=== PATIENT | male | born 1935 | race Caucasian/White ===

== ENCOUNTER → 2017-08-25 | Outpatient (CLI) | payer OTHER ==
[~2017-08-25] MED LIST: BENHYD1012 PO; CETI5 PO; Cipro500 MG PO; GAVILAX17 GM; HYDACE5 PO; IBUP400 PO; LEVSOD100 PO; Norco 5-325 Ta1 EACH PO; Pyridium200 MG PO; TAMS.4ER PO
== END | disposition home or self-care (01) ==
LOC: LAB 14:00
DX: R30.0 Dysuria (principal)
CPT/HCPCS: 87086

== ENCOUNTER → 2017-09-07 | Outpatient (CLI) | payer OTHER | END | disposition home or self-care (01) | LOC: LAB 11:30 | DX: R30.0 Dysuria (principal) | CPT/HCPCS: 87086 ==

== ENCOUNTER → 2017-09-21 | Outpatient (CLI) | payer OTHER ==
[2017-09-21 14:08] LABS: Source, Urine Clean Catch
[2017-09-21 16:24] LABS: Appearance, Urine Clear (Clear); Bilirubin, Urine Neg (Neg); Blood, Urine 3+ (Neg); Color, Urine Yellow (P-Yellow); Glucose Qualitative, Urine Neg (Neg); Ketones, Urine Neg (Neg); Leukocyte Esterase, Urine Neg (Neg); Nitrite, Urine Neg (Neg); Protein, Urine Neg (Neg); Specific Gravity, Urine 1.015 (1.003-1.022); Urobilinogen, Urine NORM (Normal)
[2017-09-21 16:40] LABS: Bacteria Few /hpf; Squamous Epithelial Cells Few /hpf (Few)
== END | disposition home or self-care (01) ==
LOC: LAB 14:03
PROVIDERS: Family Medicine
DX: R30.0 Dysuria (principal)
CPT/HCPCS: 81001; 87086

== ENCOUNTER 2018-10-30 09:50 | Day surgery (SDC) | payer OTHER ==
[~2018-10-30] VITALS: Ht 188 cm; Wt 87.7 kg
[~2018-10-30 09:50] MED LIST changes: +Benazepril HCl10 MG PO; +LO-DOSE ASPIRIN81 MG PO
[2018-10-30] MEDS ORDERED: ATOR40TA PO ×2 (10:45→10:52)
[2018-10-30] MEDS ORDERED: METO25ER PO ×2 (10:45→10:52)
[2018-10-30] MEDS ORDERED: LEVSOD100 PO (10:51)
[2018-10-30] MEDS ORDERED: Benazepril HCl10 MG PO (10:52)
[2018-10-30] MEDS ORDERED: ASPI81CH PO (10:52)
--- NOTE | 2018-10-30 12:35 | NUR ---
PT TO RECOVERY - AWAKE, ALERT, CONVERSING WITH STAFF. STATES "MY OPTIC NERVE IS STARTING TO ACT UP" STATES WHEN THIS HAPPENS, HE HAS A HARD TIME SEEING BUT IS ABLE TO CONTROL IT WITH RELAXATION TECHNIQUES. CURRENTLY RESTING COMFORTABLY ON STRETCHER. CAREGIVER TO BEDSIDE.
--- NOTE | 2018-10-30 13:57 | NUR ---
PT HAS HAD UNCOMPLICATED POST OP COURSE TO THIS POINT. NO C/O PAIN OR DISCOMFORT. RIGHT RADIAL SITE WNL. NO BLEEDING OR SWELLING NOTED. CMS TO HAND WNL. CAP REFILL BRISK. PT HAS EATEN WITHOUT DIFFICULTY. AMBULATED TO BATHROOM - STEADY ON FEET.
--- NOTE | 2018-10-30 15:26 | NUR ---
PT HAS HAD AN UNCOMPLICATED POST PROCEDURE COURSE IN RECOVERY. TR BAND DEFLATED PER POLICY. NO BLEEDING OR SWELLING NOTED. VSS. CMS TO RIGHT HAND IN TACT. CAP REFILL BRISK. REVIEWED DISCHARGE INSTRUCTIONS WITH PATIENT AND CAREGIVER - BOTH OF WHOM VERBALIZE UNDERSTANDING OF ALL. PT ABLE TO REPEAT BACK PERTINENT POINTS OF EDUCATION AND SHOWS THOROUGH UNDERSTANDING OF INFORMATION.
--- NOTE | 2018-10-30 15:44 | NUR ---
IV D/C TIP INTACT. PT TOLERATED WELL. PT DC HOME AT THIS TIME WITH CAREGIVER TO DRIVE HIM.
== END 2018-10-30 15:50 | disposition home or self-care (01) ==
LOC: MHTC 09:50
DX: I25.10 Atherosclerotic heart disease of native coronary artery without angina pectoris (principal); I77.819 Aortic ectasia, unspecified site; I10 Essential (primary) hypertension; E78.5 Hyperlipidemia, unspecified; E03.9 Hypothyroidism, unspecified; Z79.899 Other long term (current) drug therapy; Z79.82 Long term (current) use of aspirin; F17.210 Nicotine dependence, cigarettes, uncomplicated; Z88.2 Allergy status to sulfonamides; Z88.0 Allergy status to penicillin; Z91.018 Allergy to other foods; Z88.5 Allergy status to narcotic agent; Z88.1 Allergy status to other antibiotic agents
CPT/HCPCS: 93458; 99152; 99153; C1769; C1894; J1644; J2250; J3010; J7030; Q9967

== ENCOUNTER 2019-08-20 08:23 | Emergency (ER) | payer OTHER ==
[~2019-08-20] VITALS: Ht 188 cm; Wt 90.7 kg
[~2019-08-20 08:23] MED LIST changes: +ASPI81CH PO; +ATOR40TA PO; +METO25ER PO
[2019-08-20 09:13] LABS: BASOPHILS ABSOLUTE AUTO 0.08 K/mm3 (0.00-0.23); BASOPHILS PERCENT AUTO 1 % (0-2); EOSINOPHILS ABSOLUTE AUTO 0.18 K/mm3 (0.00-0.68); EOSINOPHILS PERCENT AUTO 2 % (0-6); Hematocrit 50.2 % (37.0-53.0); Hemoglobin 17.1 g/dL (13.5-17.5); IMMATURE GRAN ABSOLUTE AUTO 0.04 K/mm3 (0.00-0.10); IMMATURE GRAN PERCENT AUTO 1 % (0-1); LYMPHOCYTES ABSOLUTE AUTO 1.48 K/mm3 (0.84-5.20); LYMPHOCYTES PERCENT AUTO 17 % (21-46); MONOCYTES ABSOLUTE AUTO 0.75 K/mm3 (0.16-1.47); MONOCYTES PERCENT AUTO 9 % (4-13); Mean Corpuscular HGB 30.5 pg (26.0-34.0); Mean Corpuscular HGB Conc 34.1 g/dL (31.5-36.5); Mean Corpuscular Volume 90 fL (80-100); Mean Platelet Volume 12.7 fL (9.1-12.4); NEUTROPHILS ABSOLUTE AUTO 6.04 K/mm3 (1.96-9.15); NEUTROPHILS PERCENT AUTO 70 % (41-73); Platelet Count 222 K/mm3 (150-400); RDW Coefficient Variation 13.7 % (11.7-14.2); RDW Standard Deviation 45.3 fL (35.1-46.3); Red Blood Cell Count 5.61 M/mm3 (4.30-5.90); White Blood Cell Count 8.57 K/mm3 (4.00-11.30)
[2019-08-20] MEDS ORDERED: DOC250 PO (09:33)
[2019-08-20 09:34] LABS: Alanine Aminotransfer (ALT/SGP 20 U/L (12-78); Albumin, Blood 3.9 g/dL (3.4-5.0); Alk Phos 73 U/L (50-136); Anion Gap 10 mmol/L (6-16); Aspartate Aminotrans (AST/SGOT 24 U/L (12-37); Bilirubin, Total 1.3 mg/dL (0.1-1.0); Blood Urea Nitrogen 9 mg/dL (8-24); Bun/Creatinine Ratio 11.5 (12.0-20.0); CO2, Blood 19 mmol/L (21-32); Calcium, Blood 8.9 mg/dL (8.5-10.1); Chloride, Blood 105 mmol/L (98-108); Creatinine, Blood 0.78 mg/dL (0.60-1.20); Globulin, Blood 3.8 g/dL (2.2-4.0); Glomerular Filtration Rate >60 (60-); Glucose, Blood 100 mg/dL (70-99); Potassium, Blood 3.8 mmol/L (3.5-5.5); Sodium, Blood 134 mmol/L (136-145); Total Protein, Blood 7.7 g/dL (6.4-8.2); Troponin I <0.015 ng/mL (0.000-0.040)
[2019-08-20] MEDS ORDERED: LEVSOD100 PO (09:34)
[2019-08-20] MEDS ORDERED: Aspir 8181 MG PO (09:34)
[2019-08-20 11:09] LABS: Source, Urine Clean Catch
[2019-08-20 11:13] LABS: Bilirubin, Urine Neg (Neg); Blood, Urine 1+ (Neg); Glucose Qualitative, Urine Neg (Neg); Ketones, Urine 2+ (Neg); Leukocyte Esterase, Urine Neg (Neg); Nitrite, Urine Neg (Neg); Protein, Urine Neg (Neg); Urobilinogen, Urine NORM (Normal)
[2019-08-20 11:23] LABS: Appearance, Urine Clear (Clear); Bacteria Rare /hpf; Color, Urine Yellow (P-Yellow); Red Blood Cells, Urine 0-2 /hpf (0-2); Squamous Epithelial Cells Rare /hpf (Few); White Blood Cells, Urine 0-2 /hpf (0-5)
== END 2019-08-20 13:07 | disposition home or self-care (01) ==
LOC: ER 08:23
PROVIDERS: Emergency Medicine
DX: R07.89 Other chest pain (principal); R97.20 Elevated prostate specific antigen [PSA]; C02.9 Malignant neoplasm of tongue, unspecified; I10 Essential (primary) hypertension; N40.0 Benign prostatic hyperplasia without lower urinary tract symptoms; E03.9 Hypothyroidism, unspecified; F17.210 Nicotine dependence, cigarettes, uncomplicated; Z88.0 Allergy status to penicillin; Z88.2 Allergy status to sulfonamides; Z91.018 Allergy to other foods; Z88.8 Allergy status to other drugs, medicaments and biological substances; Z79.899 Other long term (current) drug therapy
CPT/HCPCS: 71046; 80053; 81001; 83880; 84153; 84484; 85025; 93005; 93010; 96360; 99285-25; J7030

== ENCOUNTER → 2019-12-13 | Outpatient (CLI) | payer OTHER ==
[~2019-12-13] MED LIST changes: +Aspir 8181 MG PO; +DOC250 PO
== END ==
LOC: LAB SHORT 18:42 → LAB 18:42
DX: N39.0 Urinary tract infection, site not specified (principal)
CPT/HCPCS: 87086

== ENCOUNTER → 2021-04-23 | Outpatient (CLI) | payer OTHER | END | disposition home or self-care (01) | LOC: LAB SHORT 18:59 | DX: N23 Unspecified renal colic (principal) | CPT/HCPCS: 87086 ==

== ENCOUNTER 2022-02-24 08:50 | Emergency (ER) | payer OTHER ==
[~2022-02-24] VITALS: Ht 188 cm; Wt 122.5 kg
[2022-02-24 09:41] LABS: BASOPHILS ABSOLUTE AUTO 0.09 K/mm3 (0.00-0.23); BASOPHILS PERCENT AUTO 1 % (0-2); EOSINOPHILS ABSOLUTE AUTO 0.08 K/mm3 (0.00-0.68); EOSINOPHILS PERCENT AUTO 1 % (0-6); Hematocrit 38.2 % (37.0-53.0); Hemoglobin 12.8 g/dL (13.5-17.5); IMMATURE GRAN ABSOLUTE AUTO 0.56 K/mm3 (0.00-0.10); IMMATURE GRAN PERCENT AUTO 4 % (0-1); LYMPHOCYTES ABSOLUTE AUTO 2.18 K/mm3 (0.84-5.20); LYMPHOCYTES PERCENT AUTO 16 % (21-46); MONOCYTES ABSOLUTE AUTO 0.87 K/mm3 (0.16-1.47); MONOCYTES PERCENT AUTO 6 % (4-13); Mean Corpuscular HGB Conc 33.5 g/dL (31.5-36.5); Mean Corpuscular Volume 86 fL (80-100); NEUTROPHILS PERCENT AUTO 73 % (41-73); Platelet Count 347 K/mm3 (150-400); RDW Coefficient Variation 14.2 % (11.7-14.2); RDW Standard Deviation 44.8 fL (35.1-46.3); Red Blood Cell Count 4.42 M/mm3 (4.30-5.90); White Blood Cell Count 14.08 K/mm3 (4.00-11.30)
[2022-02-24 09:59] LABS: Albumin, Blood 2.3 g/dL (3.4-5.0); Albumin/Globulin Ratio 0.5 (0.8-1.8); Bilirubin, Total 0.7 mg/dL (0.1-1.0); Bun/Creatinine Ratio 25.3 (12.0-20.0); Calcium, Blood 8.5 mg/dL (8.5-10.1); Creatinine, Blood 0.51 mg/dL (0.60-1.20); Globulin, Blood 4.2 g/dL (2.2-4.0); Potassium, Blood 4.1 mmol/L (3.5-5.5); Total Protein, Blood 6.5 g/dL (6.4-8.2)
[2022-02-24 10:23] LABS: Source, Urine Clean Catch
[2022-02-24 10:26] LABS: Appearance, Urine Cloudy (Clear); Bilirubin, Urine Neg (Neg); Blood, Urine 5+ (Neg); Color, Urine Yellow (P-Yellow); Glucose Qualitative, Urine Neg (Neg); Ketones, Urine Neg (Neg); Leukocyte Esterase, Urine 3+ (Neg); Nitrite, Urine Pos (Neg); Protein, Urine 3+ (Neg); Urobilinogen, Urine 1+ (Normal)
[2022-02-24 10:42] LABS: Bacteria Many /hpf; Red Blood Cells, Urine 25-50 /hpf (0-2); Squamous Epithelial Cells Not Seen /hpf (Few); White Blood Cells, Urine TNTC /hpf (0-5)
[2022-02-24 11:41] LABS: Influenza A, PCR NEGATIVE (NEGATIVE); Influenza B, PCR NEGATIVE (NEGATIVE); Resp Syncytial Virus, PCR NEGATIVE (NEGATIVE); SARS-Cov-2 (COVID-19) PCR, MMC NEGATIVE (NEGATIVE)
== END 2022-02-24 13:35 | disposition short-term general hospital (02) ==
LOC: ER 08:50
PROVIDERS: Student in an Organized Health Care Education/Training Program
DX: T81.40XA Infection following a procedure, unspecified, initial encounter (principal); T81.89XA Other complications of procedures, not elsewhere classified, initial encounter; K59.00 Constipation, unspecified; B99.8 Other infectious disease; E03.9 Hypothyroidism, unspecified; I10 Essential (primary) hypertension; Z88.0 Allergy status to penicillin; Y83.8 Other surgical procedures as the cause of abnormal reaction of the patient, or of later complication, without mention of misadventure at the time of the procedure; Z88.2 Allergy status to sulfonamides; Z88.1 Allergy status to other antibiotic agents; Z91.018 Allergy to other foods; Z79.82 Long term (current) use of aspirin; Z79.899 Other long term (current) drug therapy
CPT/HCPCS: 0241U; 36415; 74177; 80053; 81001; 83690; 85025; 87077; 87086; 87186; 96365-59; 96367; 96375; 99285-25; J0744; J1885; J7120; Q9967